=== PATIENT | female | born 1955 ===

== ENCOUNTER → 2017-12-05 | Outpatient (CLI) | payer OTHER | END | disposition home or self-care (01) | LOC: LAB 18:29 | DX: S71.102A Unspecified open wound, left thigh, initial encounter (principal); C44.729 Squamous cell carcinoma of skin of left lower limb, including hip; L57.8 Other skin changes due to chronic exposure to nonionizing radiation; D48.5 Neoplasm of uncertain behavior of skin; L57.0 Actinic keratosis; L81.4 Other melanin hyperpigmentation; F17.200 Nicotine dependence, unspecified, uncomplicated | CPT/HCPCS: 87070; 87077; 87186; 87205 ==

== ENCOUNTER → 2019-06-15 | Outpatient (CLI) | payer OTHER | LOC: LAB SHORT 16:00 → LAB 16:00 | DX: D48.5 Neoplasm of uncertain behavior of skin (principal) | CPT/HCPCS: 87071; 87075; 87077; 87102; 87186; 87205 ==